=== PATIENT | female | born 1995 | race Caucasian/White ===

== ENCOUNTER 2021-06-06 19:19 | Emergency (ER) | payer OTHER ==
[~2021-06-06] VITALS: Ht 167.6 cm; Wt 52.2 kg
[~2021-06-06 19:19] MED LIST: NEOPOLHCSU LEFTEAR
[2021-06-06] MEDS ORDERED: CEPH500 PO (21:57)
== END 2021-06-06 22:12 | disposition home or self-care (01) ==
LOC: ER 19:19
DX: J34.0 Abscess, furuncle and carbuncle of nose (principal); Z88.6 Allergy status to analgesic agent; Z88.8 Allergy status to other drugs, medicaments and biological substances; Z88.2 Allergy status to sulfonamides; Z88.1 Allergy status to other antibiotic agents
CPT/HCPCS: 99283; A9270

== ENCOUNTER → 2022-07-20 | Outpatient (CLI) | payer OTHER ==
[~2022-07-20] MED LIST changes: +CEPH500 PO
== END | disposition home or self-care (01) ==
LOC: LAB 14:11 → LAB SHORT 14:11
DX: R87.610 Atypical squamous cells of undetermined significance on cytologic smear of cervix (ASC-US) (principal)
CPT/HCPCS: 88305

== ENCOUNTER → 2022-08-01 | Outpatient (CLI) | payer OTHER | END | disposition home or self-care (01) | LOC: LAB SHORT 12:56 → PLD 12:56 | DX: N87.9 Dysplasia of cervix uteri, unspecified (principal) | CPT/HCPCS: 88307 ==